=== PATIENT | male | born 1985 | race African-American/Black ===

== ENCOUNTER 2018-09-06 10:58 | Inpatient (IN) | payer BC ==
[~2018-09-06 10:58] MED LIST: Iopamidol 370 76% 100 ML VIAL ONE
[2018-09-06 11:33] VITALS: BMI 21.7
[2018-09-06] MEDS ORDERED: Dexamethasone 4 mg/ml Vial ONE (12:27)
[2018-09-06] MEDS ORDERED: Clindamycin/D5W 900 mg/50 ml Premix Bag ONE (12:27)
[2018-09-06] MEDS ORDERED: Midazolam HCl 2 mg/2 ml Vial ONE (13:32)
[2018-09-06] MEDS ORDERED: Fentanyl 250 MCG/5 ML VIAL ONE (13:32)
[2018-09-06] MEDS ORDERED: Chlorhexidine Gluconate 15 ML UDCUP SSP ONE (13:35)
[2018-09-06] MEDS ORDERED: Hydrocortisone 1% Cream 30 GM TUBE ONE (13:35)
[2018-09-06] MEDS ORDERED: Lidocaine 1% w/Epinephrine 1:100K 20 ML VIAL ONE (13:35)
[2018-09-06] MEDS ORDERED: Lidocaine 4% Topical Sol 50 ML BOT ONE (13:40)
[2018-09-06] MEDS ORDERED: Lidocaine Viscous Sol 2% 15 ml UD Cup ONE (14:01)
--- NOTE | 2018-09-06 14:35 | CT ---
CT NECK SOFT TISSUES WITH CONTRAST: Date: 09/06/18 Time: 1221 hours HISTORY: 32-year-old male with left neck swelling. Evaluate abscess. COMPARISON: None. FINDINGS: There is edema throughout the submandibular spaces bilaterally and at midline, left greater than righ t, infiltrating into the preepiglottic space and left paraglottic fat, completely effacing the left p iriform sinus. There is a dilated right laryngeal ventricle. The edema extends posteriorly to involve the retropharyngeal space, but there is no discrete retropharyngeal fluid collection to indicate abs cess in that location. The edema infiltrates the anterior subcutaneous fat of the neck, and also invo lves the anterior portion of the visceral space. The left submandibular gland is enlarged and contains multiple small focal hypodensities, suggestive of multiple small abscesses. There are enlarged bilateral Level IA, left Level IB, and left Level II lymph nodes. No sialolith is identified. Bilateral tympanomastoid cavities are clear. No air fluid levels in the p aranasal sinuses. The sphenoid and right ethmoid sinuses are clear. Small mucus retention cyst at leandro or of right maxillary sinus. The rest of the right maxillary sinus is clear. Polypoid mucosal thicken ing at floor of left maxillary sinus. The edema also involves the sublingual space, left greater than right. There is a small periapical norma cency around the roots of the most posterior left lower molar tooth, which has a prominent carious de fect in its crown. There is a tiny osseous cortical lesion at the lingual side of the mandible which communicates with this periapical lucency. There is edema in the left parapharyngeal space. The oropharyngeal airway and supraglottic laryngeal airway are displaced to the right, and mildly narrowed. IMPRESSION: 1. Severe cellulitis/infection involving the left submandibular space, involving the left submandibu lar gland, which is enlarged and contains multiple small abscesses. 2. The edema infiltrates in multiple spaces, effaces the left supraglottic larynx and left hypophary nx, displacing the supraglottic laryngeal airway to the right. 3. It is possible that the origin of the infection is from dental abscess involving the left lower l ast molar tooth. POS: [facility]
[2018-09-06] MEDS ORDERED: D5 1/2 NS w/20 mEq KCL 1,000 ML ONE (15:45)
[2018-09-06] MEDS ORDERED: HYDROcodone/Acetaminophen 7.5/325 mg Tablet PO PRN (16:28)
[2018-09-06] MEDS ORDERED: Morphine 4 MG/ML VIAL SLOW IVP PRN (16:28)
[2018-09-06] MEDS ORDERED: Ondansetron PF 4 MG/2 ML Vial IVP PRN (16:29)
[2018-09-06] MEDS ORDERED: Ketorolac Tromethamine 30 MG/ML VIAL ONE (16:41)
[2018-09-06] MEDS ORDERED: Ondansetron PF 4 MG/2 ML Vial ONE (16:41)
[2018-09-06] MEDS ORDERED: PROPOFOL 200 MG/20 ML VIAL ONE (16:41)
[2018-09-06] MEDS ORDERED: Dexamethasone 20 MG/5 ML VIAL ONE (16:41)
[2018-09-06] MEDS: 1/2 NS w/KCL 20 mEq 1,000 ML IV SCH (16:56)
--- NOTE | 2018-09-06 20:50 | HP ---
CHIEF COMPLAINT: Jaw pain, swelling, difficulty swallowing. HISTORY OF PRESENT ILLNESS: This is a 32-year-old male with several day history of increasing left jaw pain and swelling which pressed down into his neck causing difficulty swallowing and severe pain. CT scan taken in the ER shows large left deep neck space abscess, fluid collection with necrotic teeth 16 and 17. ALLERGIES: NO KNOWN DRUG ALLERGIES. MEDICATIONS: None. PAST SURGICAL HISTORY: No surgeries in the past. PAST MEDICAL HISTORY: No medical problems. SOCIAL HISTORY: The patient does smoke half pack a day. PHYSICAL EXAMINATION: GENERAL: The patient is awake, alert, oriented x3, in no acute distress. He is having some difficulty swallowing secretions. VITAL SIGNS: Stable. He is afebrile. HEART: Regular rate and rhythm. S1 and S2 are noted. LUNGS: Clear to auscultation bilaterally. ABDOMEN: Soft, nontender, nondistended. He has good bowel sounds. HEENT: He does have a large amount of left neck swelling and 10 mm trismus. His oropharynx is not visualized due to trismus and swelling. He has caries in 16 and 17. EXTREMITIES: He has good peripheral pulses in all 4 extremities. NEUROLOGIC: His cranial nerves 2 through 10 are intact and he has good strength, flexion and extension in all 4 extremities. ASSESSMENT: This is a 32-year-old male with left deep neck space abscess from necrotic tooth 17. PLAN: Take the patient to OR. Incision and drainage of the abscess. Remove teeth [address] on IV antibiotics in inpatient. Job ID: [id number]
[2018-09-06] MEDS: Clindamycin/D5W 900 MG in Premix Bag 1 BAG IVPB SCH (21:04)
[2018-09-06] MEDS: Chlorhexidine Gluconate 15 ML UDCUP SSP SCH (21:05)
[2018-09-06] MEDS: Ibuprofen 800 MG TAB PO SCH (21:10)
[2018-09-07] MEDS: Ibuprofen 800 MG TAB PO SCH (05:50)
[2018-09-07] MEDS: Clindamycin/D5W 900 MG in Premix Bag 1 BAG IVPB SCH (05:50)
[2018-09-07 07:25] VITALS: TEMP 97.9
[2018-09-07 08:14] LABS: Band 12 % (5-11); Hemoglobin 13.3 g/dL (14.0-18.0); Lymphocytes 13 % (21-51); MDiff Complete? YES; Mean Corpuscular HGB CONC 33.5 g/dL (32.0-36.0); Mean Corpuscular Hemoglobin 31.6 pg (27.0-31.0); Mean Corpuscular Volume 94.3 fL (78.0-98.0); Mean Platelet Volume 8.5 fL (7.4-10.4); Monocytes 5 % (0-10); Neutrophil 70 % (42-75); Platelet Count 196 thou/uL (130-400); Red Blood Cell (RBC) Count 4.22 mill/uL (4.70-6.10)
[2018-09-07] MEDS: 1/2 NS w/KCL 20 mEq 1,000 ML IV SCH (08:43)
[2018-09-07] MEDS: Chlorhexidine Gluconate 15 ML UDCUP SSP SCH (09:34)
[2018-09-07 11:52] VITALS: BP 98/59
--- NOTE | 2018-09-08 13:54 | OP ---
DATE OF PROCEDURE: 09/06/2018 PREOPERATIVE DIAGNOSES: 1. Left submandibular, left sublingual, and left parapharyngeal abscesses. 2. Necrotic teeth, 16 and 17. PROCEDURE PERFORMED: 1. Surgical removal of teeth #16 and 17. 2. Incision and drainage of left deep neck space abscesses in submandibular, parapharyngeal, and sublingual spaces. DRAINS: A drain was placed. COMPLICATIONS: None. SPECIMENS: Purulent culture was sent to Microbiology for Gram stain culture. ANESTHESIA: General endotracheal anesthesia through nasal tube, awake fiberoptic, which the patient tolerated very well. DISPOSITION: The patient was stable, extubated, and transported to postoperative recovery unit. BRIEF PATIENT HISTORY AND PROCEDURE IN DETAIL: This is a 32-year-old male with a several-day history of left jaw pain and swelling, as well as neck pain and swelling, taken to the operating room for incision and drainage of left neck space abscess. The patient was intubated very smoothly and successfully with awake fiberoptic nasal intubation. The patient was prepped and draped in sterile fashion. An approximately 1.5 cm was made in the left neck 2 cm below the inferior border of the submandible. Blunt dissection through subcutaneous tissue, platysma, superficial layer of the cervical fascia into the left submandibular space, dissection down into inferior border of mandible. Pus was found in the submandibular, parapharyngeal, and sublingual spaces. These areas were thoroughly cleaned out and irrigated. Procedure was then taken to the oral cavity where a bite block was placed. Throat pack was placed using Ray-Saima sponge. Lingual flap was made, full-thickness mucoperiosteal flap around the teeth. Lingual degloving incision with pus expressed. Tooth #17 was removed after removing a small amount of buccal bone using elevator. Tooth #16 was then removed with a full-thickness mucoperiosteal flap and elevator. A drain was placed from the left neck, half-inch Abdifatah drain, which goes into the to the socket of #17. It was secured in place to the skin and the submandibular incision with 2-0 silk. The patient tolerated the procedure well. Job ID: [id number]
--- NOTE | 2018-09-10 09:51 | DIS ---
DATE OF ADMISSION: 09/06/2018 DATE OF DISCHARGE: 09/07/2018 ADMITTING DIAGNOSES: Dental abscess and deep neck space abscess. DISCHARGE DIAGNOSES: Dental abscess and deep neck space abscess. PROCEDURE PERFORMED: While the patient was in the hospital, incision and drainage of deep neck space abscess and extraction of teeth. DISPOSITION: Home. 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 PRE-PATIENT HISTORY AND hospital courseL: This is a 32-year-old male who underwent incision and drainage of a large deep neck space abscess on 09/06/2018 , who responded well, was afebrile, with stable vital signs and tolerating p.o. on 09/07/2018. He is to follow up in my clinic on 09/09/2018 for drain removal, and he is on clindamycin 300mg PO q 6hrs x 7days as well as Hiwassee as needed for pain and Peridex. Job ID: [id number] MTDD
== END 2018-09-07 15:06 | disposition home or self-care (01) | DRG 137 ==
LOC: SDC 10:58 → SURG B 14:27
PROVIDERS: ADMIT Dentist Oral and Maxillofacial Surgery; ATTEND Dentist Oral and Maxillofacial Surgery
PROC: 0J910ZZ Drainage of Face Subcutaneous Tissue and Fascia, Open Approach (ICD-10-PCS; principal; 2018-09-06)
PROC: 0CDXXZ0 Extraction of Lower Tooth, Single, External Approach (ICD-10-PCS; 2018-09-06)
PROC: 0CDWXZ0 Extraction of Upper Tooth, Single, External Approach (ICD-10-PCS; 2018-09-06)
DX: K12.2 Cellulitis and abscess of mouth (principal); J39.0 Retropharyngeal and parapharyngeal abscess; K04.7 Periapical abscess without sinus; K04.1 Necrosis of pulp; F17.210 Nicotine dependence, cigarettes, uncomplicated
CPT/HCPCS: 36415; 70491; 85025; 87070; 87205; J0131; J1100; J1885; J2001; J2250; J2405; J2704; J3010; J3490